=== PATIENT | male | born 1985 | race Caucasian/White ===

== ENCOUNTER 2019-12-27 12:36 | Emergency (ER) | payer OTHER, SELFPAY ==
[2019-12-27 12:40] VITALS: BP 140/88; PULSE 91; RESP 14; TEMP 36.8; O2SAT 99; BMI 35.3
--- NOTE | 2019-12-27 12:52 | DI.RAD.S_ITS ---
PROCEDURE: XR FINGER LT MIN 2V INDICATIONS: lac over knuckle TECHNIQUE: AP hand, 2 views of the 2nd finger(s) acquired. COMPARISON: None. FINDINGS: Bones: No fractures or dislocations. No suspicious bony lesions. Soft tissues: No suspicious soft tissue calcifications. No radial opaque foreign body. IMPRESSION: No acute osseous abnormality. Dictated by: Chris Slater M.D. on 12/27/2019 at 13:21 Approved by: Chris Slater M.D. on 12/27/2019 at 13:22
--- NOTE | 2019-12-27 12:53 | PC.NURSE ---
Wound cleansed with CHG. Bleeding controlled. Edges well approximated. Provider at bedside
--- NOTE | 2019-12-27 14:38 | ED.WOUNDLAC ---
HPI - Wound/Laceration <DAMI Licea - Last Filed: 12/27/19 14:49> General Chief Complaint: Wound/Laceration Stated Complaint: cut left hand Time Seen by Provider: 12/27/19 12:41 Source: patient Mode of arrival: Ambulatory Limitations: no limitations History of Present Illness HPI narrative: The patient is a 34-year-old male current smoker who denies pertinent medical history who presents with a chief complaint of a laceration. He cut it with a piece of metal while digging a fence post. He did not cleaned off prior to arrival in the emergency department. Tetanus is within the past 5 years. He states he has full range of motion over his left index finger. He states that the laceration is over is not go. Related Data Allergies Allergy/AdvReac Type Severity Reaction Status Date / Time No Known Drug Allergies Allergy Verified 12/27/19 12:47 Review of Systems <DAMI Licea - Last Filed: 12/27/19 14:49> Review of Systems Narrative: GENERAL: Denies chills, fatigue, malaise, fever, sweats. HEENT: Denies sinus pain, ear pain, sore throat, difficulty swallowing, dizziness. RESPIRATORY: Denies dyspnea, cough, wheezing, hemoptysis, sputum. CARDIOVASCULAR: Denies chest pain, palpitations, orthopnea, edema, GASTROINTESTINAL: Denies nausea, vomiting, abdominal pain, diarrhea, constipation, melena. : Denies dysuria, frequency, incontinence, hematuria, urinary retention. MUSCULOSKELETAL: See HPI SKIN: See HPI NEUROLOGIC: Denies weakness, headache, numbness, change in speech, confusion, seizures, incoordination. PSYCHIATRIC: No concerning psychosocial issues. 12 point review of systems is negative except for those stated above Patient History <DAMI Licea - Last Filed: 12/27/19 14:49> Social History Smoking Status: Current every day smoker Smoking Status: Current every day smoker alcohol intake frequency: holidays/special occasions only Substance Use Type: does not use Exam <DAMI Licea - Last Filed: 12/27/19 14:49> Narrative Exam Narrative: GENERAL: This is a well-nourished, well-developed patient, in no acute distress HEAD: Atraumatic. Normocephalic. No temporal or scalp tenderness. EYES: Pupils equal round and reactive. Extraocular motions intact. No scleral icterus. No injection or drainage. ENT: Nose without bleeding, purulent drainage or septal hematoma. Throat without erythema, tonsillar hypertrophy or exudate. Uvula midline. Airway patent. NECK: Trachea midline. No JVD or lymphadenopathy. Supple, nontender, no meningeal signs. RESPIRATORY: No cough. No increased respiratory effort. No accessory muscle use. EXTREMITIES: Full range of motion noted left index finger against resistance. Skin exam is noted. Cap refill less than 2 seconds all fingers left hand. Positive left radial pulse. BACK: Nontender without deformity or crepitance. No flank tenderness. NEURO: AOx3. SKIN: Laceration, well approximated, not full thickness on dorsum of left hand overlying left index finger MCP joint. Initial Vital Signs Initial Vital Signs: Vital Signs Temperature 98.3 F 12/27/19 12:40 Pulse Rate 91 H 12/27/19 12:40 Respiratory Rate 14 12/27/19 12:40 Blood Pressure 140/88 12/27/19 12:40 Pulse Oximetry 99 12/27/19 12:40 <Johann Demarco DO - Last Filed: 12/27/19 14:50> Initial Vital Signs Initial Vital Signs: Vital Signs Temperature 98.3 F 12/27/19 12:40 Pulse Rate 91 H 12/27/19 12:40 Respiratory Rate 14 12/27/19 12:40 Blood Pressure 140/88 12/27/19 12:40 Pulse Oximetry 99 12/27/19 12:40 Procedures <DAMI Licea - Last Filed: 12/27/19 14:49> Orthopedic Splinting/Casting Injury #1: Side: left Upper Extremity Injury Location: finger Upper Extremity Immobilizer: aluminum form splint Post splinting neuro exam: intact Post splinting vascular exam: intact Placed by: Nursing Course <DAMI Licea - Last Filed: 12/27/19 14:49> Orders Ordered: ED Orders 12/27/19 12:52 XR finger LT min 2V Stat Vital Signs Vital signs: Vital Signs - 8 hr 12/27/19 12:40 Temperature 98.3 F Pulse Rate 91 H Respiratory Rate 14 Blood Pressure 140/88 Pulse Oximetry 99 <Johann Demarco DO - Last Filed: 12/27/19 14:50> Orders Ordered: ED Orders 12/27/19 12:52 XR finger LT min 2V Stat Vital Signs Vital signs: Vital Signs - 8 hr 12/27/19 12:40 Temperature 98.3 F Pulse Rate 91 H Respiratory Rate 14 Blood Pressure 140/88 Pulse Oximetry 99 MDM - Wound/Laceration <ELIER Licea-BC - Last Filed: 12/27/19 14:49> Differential Diagnosis Differential diagnosis: Likely laceration MDM Narrative Medical decision making narrative: The patient is a 34-year-old male who presents with a chief complaint of laceration. Tetanus is up-to-date. X-ray negative. Laceration was cleansed with chlorhexidine and dressed by nursing. Discussed at length monitoring for signs and symptoms of infection such as redness swelling and pus. Patient was placed in a splint to help wound heal. Patient has no questions or concerns upon discharge and states understanding of return precautions as well as follow-up care. Discharge Plan Departure Patient Disposition: Home Clinical Impression: Laceration Discharge Date/Time: 12/27/19 13:59 Instructions: DI for Laceration Repair Steri-Strips Activity Restrictions/Additional Instructions: Thank you for trusting us with your care today As I discussed, your x-ray shows no acute fracture. It is important that you follow up with primary care provider, especially if worsening or no improvement. There can be fractures that did not show up on initial x-ray. Please as I discussed to not submerge her hand into dirty water. This includes machine i engraver pool water etcetera as this increases your chance of infection Please monitor your wound for signs of infection such as redness, fever, decreased range of motion etcetera Please follow-up with primary care provider in the next few days Please come back to the emergency department for any acute concerns Referrals: [facility] [Outside] <Johann Demarco DO - Last Filed: 12/27/19 14:50> Cosign ED Attending Cosignature Attestation: Dr Demarco Co-Sign Statement: I was available for consultation during this patient's emergency department visit. This chart is signed by myself for administrative purposes only. I did not have direct contact with this patient during this visit. They were seen independently by the APC.
== END 2019-12-27 13:59 | disposition home or self-care (01) ==
PROVIDERS: Emergency Provider Nurse Practitioner Family
DX: S61.412A Laceration without foreign body of left hand, initial encounter (principal); W26.9XXA Contact with unspecified sharp object(s), initial encounter
CPT/HCPCS: 73140; 99282; 99283